=== PATIENT | female | born 1985 | race Caucasian/White ===

== ENCOUNTER 2017-06-21 13:38 | Emergency (ER) | payer OTHER ==
[~2017-06-21] VITALS: Ht 160 cm; Wt 65.8 kg
[2017-06-21] MEDS ORDERED: FLAGYL500 MG PO (13:51)
[2017-06-21] MEDS ORDERED: SYNTHROID150 MCG PO (13:51)
[2017-06-21] MEDS ORDERED: NAPROSYN500 M1 PO (14:48)
[2017-06-21 15:07] VITALS: BP 119/43
== END 2017-06-21 15:07 | disposition home or self-care (01) ==
LOC: M.ERS 13:38
DX: M25.562 Pain in left knee (principal); Z90.710 Acquired absence of both cervix and uterus; Z85.850 Personal history of malignant neoplasm of thyroid